=== PATIENT | male | born 1995 | race Caucasian/White ===

== ENCOUNTER 2025-08-22 17:26 | Emergency (ER) | payer OTHER, SELFPAY ==
[2025-08-22 17:35] VITALS: BP 135/73; RESP 18; TEMP 36.6; O2SAT 98; BMI 28.0
--- NOTE | 2025-08-22 17:35 | ED_ITS ---
HPI - General Adult General Chief complaint: Nausea/Vomiting/Diarrhea Stated complaint: n/v/d Time Seen by Provider: 08/22/25 18:01 Source: patient, RN notes reviewed and old records reviewed Mode of arrival: ambulatory History of Present Illness ED Provider: Jesica Koch PA-C [facility] narrative: 30-year-old male with no significant past medical history presenting to the ED complaining of abdominal discomfort/cramping, nausea, vomiting, and nonbloody diarrhea since 04:00. Admits to about 20 episodes of diarrhea. Patient admits to eating clams and oysters last night. Also reports associated low back pain. States others did eat same food and do not have similar symptoms. Denies fever, chills, travel, dysuria/hematuria, incontinence/retention Related Data Previous Rx's ?Medication ?Instructions ?Recorded dicyclomine 20 mg tablet 20 mg PO QID PRN abdominal p ain 08/22/25 #12 tabs ondansetron 4 mg disintegrating 4 mg PO Q8H PRN nausea and 08/22/25 tablet vomiting #10 tabs Allergies Allergy/AdvReac Type Severity Reaction Status Date / Time No Known Allergies Allergy Verified 08/22/25 17:37 Review of Systems 2 Review of Systems: Yes all other systems are reviewed and are negative Constitutional: Constitutional: Reports as per [facility] Past Medical History Attestation statement: The following information was validated with the patient. Source: old records reviewed Social History Social History Advance Directives: No Advance Directives on File: No Do you have a plan to hurt others: No Plan Physical Exam ED Vital Signs: Vital Signs - 24 hr 08/22/25 17:35 08/22/25 19:13 08/22/25 20:00 Temperature 98 F 98.1 F 98.8 F Pulse Rate 75 72 Respiratory Rate 18 16 16 Blood Pressure 135/73 121/74 146/79 H Pulse Oximetry 98 98 99 Oxygen Delivery Method Room Air Room Air Room Air 08/22/25 21:08 Temperature 98.8 F Pulse Rate 72 Respiratory Rate 16 Blood Pressure 146/79 H Pulse Oximetry 99 Oxygen Delivery Method Room Air BMI result Body Mass Index 28.0 Const General: cooperative, healthy appearing and no acute distress Orientation/consciousness: patient oriented x3 Limitations: no limitations HENMT Head: Yes normal to inspection and Yes atraumatic Ears: hearing grossly normal bilaterally General nose exam: Normal external nose present Face and sinus: Yes normal facial exam Eyes General: appearance normal, both eyes and all related structures EOM: EOMs intact bilaterally Neck Neck: Yes normal visual inspection and Yes no meningeal signs Resp Effort & Inspection: normal respiratory effort and no respiratory distress Cardio Rate: regular rate GI Inspection: Yes normal to inspection Palpation (GI): Soft to palpation, nontender, no guarding and not rigid General: Yes no CVA tenderness Back/Spine/Pelvis Other: No midline cervical/thoracic/lumbar spinous tenderness/step-off or deformity. + mild lumbar bilateral paraspinal reproducible tenderness Back: no CVA tenderness Skin Rashes: no rashes Wounds: no wounds Neuro Other: Strength intact throughout. No saddle anesthesia. Sensation intact to light touch. Neurovascular intact distally General: patient oriented x3, gait normal, tone normal, moves all extremities and no meningeal signs Cranial nerves: Yes CN's II-XII intact bilaterally Gait exam (Neuro): Normal gait present Motor exam (neuro): 5/5 motor strength present throughout Extrem General: Yes normal to inspection Course Course Course Narrative: This is a Rapid Medical Examination (RME) performed by Ayan Bailey PA-C in triage. Full HPI, ROS, assessment and treatment plan per primary provider in the Main ED. Hx: 30 yo M here for eval of N/V/D and mid abdominal pain x 0400 this morning. admits to eating oysters and clams yesterday. having muscle cramps to extremities. Plan: labs -1948--mild leukocytosis of 12.3 predominantly neutrophils. BUN mildly elevated at 22. Total bilirubin 1.4. Labs otherwise reassuring -C diff negative > stool studies pending. Discussed with patient if there is a positive result he will be contacted. Empiric antibiotic treatment not recommended at this time with him being well-appearing/afebrile -Abdominal re-palpation unremarkable. CT not indicated at this time >> patient is tolerating p.o. in the ED without difficulty. No vomiting since ED arrival Results discussed with patient including worrisome signs and symptoms and strict return precautions, and when to return to the emergency department. They verbalized understanding and feel safe for discharge at this time. Medications Administered Discontinued Medications Generic Name Dose Route Start Last Admin Trade Name Shahrzad PRN Reason Stop Dose Admin Cyclobenzaprine HCl 5 mg 08/22/25 19:15 08/22/25 19:43 Cyclobenzaprine Hcl 5 Mg Tablet PO 08/22/25 19:16 5 mg ONCE ONE Administration Dicyclomine HCl 20 mg 08/22/25 18:20 08/22/25 18:28 Dicyclomine Hcl 10 Mg Capsule PO 08/22/25 18:21 20 mg ONCE ONE Administration Sodium Chloride 1,000 mls @ 999 mls/hr 08/22/25 18:15 08/22/25 19:42 Ns IV 08/22/25 19:15 Infused .Q1H1M PETRA Infusion Sodium Chloride 1,000 mls @ 999 mls/hr 08/22/25 19:00 08/22/25 20:59 Ns IV 08/22/25 20:00 Infused .Q1H1M PETRA Infusion Ketorolac Tromethamine 15 mg 08/22/25 18:20 08/22/25 18:28 Ketorolac Tromethamine 15 Mg/Ml Vial IVPUSH 08/22/25 18:21 15 mg ONCE ONE Administration Metoclopramide HCl 10 mg 08/22/25 18:20 08/22/25 18:29 Metoclopramide Hcl 10 Mg/2 Ml Vial IVPUSH 08/22/25 18:21 10 mg ONCE ONE Administration Medical Decision Making Medical Decision Making MDM Narrative: 30-year-old male with no significant past medical history presenting to the ED complaining of abdominal discomfort/cramping, nausea, vomiting, and nonbloody diarrhea since 04:00. On exam vital signs stable, NAD, nontoxic appearing, abdomen is soft and nontender, no CVAT. Reproducible MSK back pain noted. No red flag symptoms. Concern for food poisoning/vibrio vs gastroenteritis. Low suspicion for acute necrotizing fasciitis/ischemic bowel. Rule out metabolic abnormalities. Lower suspicion for acute appendicitis/diverticulitis, colitis, testicular torsion, cauda equina/cord compression or epidural abscess Plan: Labs, UA, stool studies/C diff, IVF, symptomatic remedies, re-evaluate Please refer to course for remaining clinical decision making, interpretation of labs/imaging results, and discussions with consultants and/or family members. Differential Diagnosis Differential Diagnoses: The differential diagnosis associated with the presentation includes As above Admission/Observation Consideration of admission/observation: Escalation of care including admission/observation considered Lab Data MDM Lab Attestation statement: I reviewed the patient's lab results. 08/22/25 18:04 08/22/25 18:04 Labs: Lab Results 08/22/25 08/22/25 Range/Units 18:04 18:45 WBC 12.3 H (4.8-10.8) X10*3/uL RBC 5.70 (4.60-5.80) X10*6/uL Hgb 17.9 (14.0-18.0) g/dl Hct 51.1 (42.0-52.0) % MCV 89.6 (80.0-98.0) fL MCH 31.4 (27.0-33.0) pg MCHC 35.0 (31.0-36.0) g/dl RDW 11.5 (11.0-16.0) % Plt Count 271 (160-400) X10*3/uL MPV 10.1 (9.4-12.4) fL Immature Gran % (Auto) 0.4 (0.0-0.4) % Neut % (Auto) 90.3 H (45-73) % Lymph % (Auto) 2.5 L (20-40) % Runnels % (Auto) 6.4 (2-11) % Eos % (Auto) 0.2 (0-4) % Baso % (Auto) 0.2 (0-2) % Lymph # (Auto) 0.3 L (1.2-4.9) X10*3/uL Runnels # (Auto) 0.8 (0.1-1.2) X10*3/uL Eos # (Auto) 0.0 (0.0-0.4) X10*3/uL Baso # (Auto) 0.0 (0.0-0.2) X10*3/uL Abs Immat Gran (auto) 0.05 H (0.00-0.03) X10*3/uL Absolute Neuts (auto) 11.1 H (2.0-8.3) x10*3/uL Absolute Nucleated RBC 0.000 (0.0-0.012) X10*3/uL Nucleated RBC % (auto) 0.0 (0.0-0.2) /100WBC Smear Tech's Comments VERIFIED ESR 2 (0-15) MM/HR Sodium 137 (135-145) mmol/L Potassium 4.4 (3.3-5.1) mmol/L Chloride 105 (96-108) mmol/L Carbon Dioxide 20 L (22-29) mmol/L Anion Gap 16 (12-20) BUN 22 H (9-16) mg/dL Creatinine 1.27 (0.5-1.4) mg/dL Estim Creat Clear Calc 96.9 Estimated GFR > 60 Random Glucose 122 H (60-115) mg/dL Calcium 10.8 H (8.4-10.2) mg/dL Magnesium 1.9 (1.6-2.6) mg/dL Total Bilirubin 1.4 H (0.0-1.0) mg/dL AST 32 (5-37) U/L ALT 46 H (0-40) U/L Alkaline Phosphatase 68 (39-117) U/L C-Reactive Protein 0.41 (< or = 0.50) mg/dL Total Protein 8.9 H (6.5-8.0) g/dL Albumin 6.0 H (3.5-5.0) g/dL Lipase 13 (8-78) U/L Stl C. cayetanensis PCR Not Detected (Not Detect.) Stool Rotavirus A PCR Detected A (Not Detect.) Stl Adenov F 40/41 PCR Not Detected (Not Detect.) Stool Astrovirus (PCR) Not Detected (Not Detect.) Stool Campylobacter PCR Not Detected (Not Detect.) Stool Cryptosporidium PCR Not Detected (Not Detect.) Stl Sh Tox Pr E STEC PCR Not Detected (Not Detect.) Stool E coli O157 PCR Not applicable (Not Detect.) Stl Enterotoxigenic E PCR Not Detected (Not Detect.) Stool EPEC (PCR) Not Detected (Not Detect.) Stool EAEC (PCR) Not Detected (Not Detect.) Stl E. histolytica PCR Not Detected (Not Detect.) Stool Giardia Lamblia PCR Not Detected (Not Detect.) Stl P. shigelloides PCR Not Detected (Not Detect.) Stool Salmonella PCR Not Detected (Not Detect.) Stool Sapovirus (PCR) Not Detected (Not Detect.) Stl Shigella/EIEC PCR Not Detected (Not Detect.) St Y.enterocolitica PCR Not Detected (Not Detect.) Stool Vibrio (PCR) Not Detected (Not Detect.) Stl Vibrio cholerae PCR Not Detected (Not Detect.) Stl Norovirus GI/GII PCR Not Detected (Not Detect.) C. difficile Tox B Gene NEGATIVE (Negative) Influenza Type A (PCR) NEGATIVE (Negative) Influenza Type B (PCR) NEGATIVE (Negative) RSV RNA Qual (PCR) NEGATIVE (Negative) SARS-CoV-2 RNA (RT-PCR) NEGATIVE (Negative) Radiology Impression Discussion of test interpretation with radiology: I have reviewed the radiologist's reading. Independent Historian Clinical information obtained from an independent historian. History obtained from or confirmed by: Other External Record Review External record reviewed: Inpatient record, Office record, Outpatient record, Prior outpatient labs, Prior outpatient radiology, Primary care record and Outside ED record Tests considered The following testing was considered but not selected: As above Prescription Management I considered prescription management with: Pain Medication and Antibiotic Social Determinants Patient?s care significantly limited by Social Determinants of Health including: Other Social Determinant of Health Discharge Plan Discharge Clinical Impression: Food poisoning Patient Disposition: Home, Self-Care Instructions: Foodborne Illness (DC) Additional Instructions: Your blood work is reassuring You were negative for C diff Your stool studies are pending you will be contacted with positive results Make sure you are staying hydrated If her symptoms persist/worsen, you constant worsening abdominal pain, persistent diarrhea, black or bloody stools, persistent vomiting, you are unable to eat or drink return to the emergency department Please have close follow up with your primary care doctor Maryam will help with abdominal spasming. Zofran as an antinausea medication, take as needed Prescriptions: New dicyclomine 20 mg tablet 20 mg PO QID PRN (Reason: abdominal pain) Qty: 12 0RF ondansetron 4 mg tablet,disintegrating 4 mg PO Q8H PRN (Reason: nausea and vomiting) Qty: 10 0RF Referrals: Physician,None [Primary Care Provider, Medical] - 5 days Interventions: ED Discharge Assessment Last Done: 08/22/25 21:08 Discharge Date/Time: 08/22/25 21:09 Print Language: Persian
[2025-08-22 18:16] LABS: Hematocrit 51.1 % (42.0-52.0); Hemoglobin 17.9 g/dl (14.0-18.0); Imm Gran Abs Auto 0.05 X10*3/uL (0.00-0.03); Imm Gran Pct Auto 0.4 % (0.0-0.4); Lymphocytes Absolute Auto 0.3 X10*3/uL (1.2-4.9); MANUAL DIFF FLAG SCAN; Mean Corpuscular HGB Conc 35.0 g/dl (31.0-36.0); Mean Corpuscular Hemoglobin 31.4 pg (27.0-33.0); Mean Corpuscular Volume 89.6 fL (80.0-98.0); NRBC Abs Auto 0.000 X10*3/uL (0.0-0.012); NRBC Pct Auto 0.0 /100WBC (0.0-0.2); Platelet Count 271 X10*3/uL (160-400); Red Blood Count 5.70 X10*6/uL (4.60-5.80); SCAN SMEAR FLAG 1; White Blood Count 12.3 X10*3/uL (4.8-10.8)
[2025-08-22 18:31] LABS: Alanine Aminotransferase 46 U/L (0-40); Albumin Level 6.0 g/dL (3.5-5.0); Alkaline Phosphatase 68 U/L (39-117); Anion Gap 16 (12-20); Aspartate Amino Transferase 32 U/L (5-37); Blood Urea Nitrogen 22 mg/dL (9-16); Calcium 10.8 mg/dL (8.4-10.2); Carbon Dioxide 20 mmol/L (22-29); Chloride 105 mmol/L (96-108); Creatinine Clr Calc Pharmacy 96.9; Estimated Glomerular Filt Rate > 60; Lipase 13 U/L (8-78); Magnesium 1.9 mg/dL (1.6-2.6); Potassium 4.4 mmol/L (3.3-5.1); Sodium 137 mmol/L (135-145); Total Protein 8.9 g/dL (6.5-8.0)
[2025-08-22 18:51] LABS: Resp Syncy Virus RNA Qual PCR NEGATIVE (Negative); SARS COV2 PCR INHOUSE NEGATIVE (Negative)
[2025-08-22 19:13] VITALS: BP 121/74; PULSE 75; RESP 16; TEMP 36.7; O2SAT 98
--- OUTSIDE RECORDS SUMMARY | 2025-08-22 19:18 | XMS_ITS | Encounter Summary ---
Author Organization [facility] Address [address] [place] [id number] Phone Care Team Providers Care Rustic Fence Builder Name Role Phone Crystal Sierra NP Primary Care Provider [phone] Reason for Referral * - Pending Review Specialty Diagnoses / Procedures Referred By Mariola chen Referred To Contact Diagnoses Palpitations Procedures Patch Monitor up to 15 days Crystal Sierra NP [address] [place] [address] Phone: tel: fax: Referral ID Status Reason Start Date Expiration Date V isits Requested Visits Authorized [id number] Pending Review 07/27/2025 1 1 Encounter Details Date Type Department Care Team ([facility] st Contact Info) Description 07/27/2025 Ancillary Orders [facility] Cardiology [address] [facility] [address] [place] [address] Crystal Sierra NP [address] [id number] Palpitations (Primary Dx) Social History Tobacco Use Types Packs/Day Years Used Date Smoking Tobacco: Never Assessed Sex and Gender Information Value Date Recorded Sex Assigned at Not on file Legal Sex Male 10:03 AM EST Gender Identity Not on file Sexual Orientation Not on file documented as of this encounter Plan of Treatment Scheduled Orders Name Type Priority Associated Diagnoses Orde r Schedule Patch Monitor up to 15 days Cardiac Monitors Routine Palpitations Expected: 07/27/2025, Expires: 10/27/2025 documented as of this encounter Visit Diagnoses Diagnosis Palpitations- Primary documented in this encounter Care Teams Rustic Fence Builder Relationship Specialty Start Date End Date Crystal Sierra NP [address] [place] [address] PCP - General Nurse Practitioner 07/20/25 documented as of this encounter Additional Source Comments The information contained in this document represents components of the legal health record. It is not the complete legal health record.[facility]
--- OUTSIDE RECORDS SUMMARY | 2025-08-22 19:18 | XMS_ITS | Clinical Summary ---
[facility] Address [address] [place] [address] Phone Care Team Providers Care [employer] Name Role Phone Crystal Perez VIKA Primary Care Provider [phone] Allergies No known active allergies Medications Diclofenac Sodium (Voltaren) 1 % gel Apply topically four times a day 5 Active fluconazole (DIFLUCAN) 150 MG tablet Take 2 tablets (300 mg) by mouth once a week 26 tablet 1 5 Active ketoconazole (NIZORAL) 2 % cream Apply topically two times a day 30 g 2 5 Active ciclopirox (PENLAC) 8 % solution Apply topically nightly 6.6 mL 5 026 Active lisdexamfetamine (VYVANSE) 30 MG capsuleIndication s:Attention deficit hyperactivity disorder (ADHD), combined type Take 1 capsule (30 mg) by mouth every morning Dx code F90.9. Fill 08/18/25 30 capsule 5 Active lisdexamfetamine (VYVANSE) 30 MG capsuleIndication s:Attention deficit hyperactivity disorder (ADHD), combined type Take 1 capsule (30 mg) by mouth every morning Dx code F90.9 30 capsule 5 025 Discontin ued(Reord er) Active Problems Problem Noted Date Diagnosed Date Controlled substance agreement signed 03/12/2025 Overview (03/12/2025): Chronic Stimulant Treatment Agreement, 03/10/25 ADHD 01/02/2025 Overview (07/19/2025): Dx and initiation of treatment since 09/2024 by [facility] from [place] via video. 03/10/25 -Trial Vyvanse 20 mg daily. Previously was on Adderall 10 mg BID. 03/10/25 Drug agreement signed. 03/10/25 UDS - consistent. Palpitations 09/17/2023 Overview (04/13/2025): 04/13/25 - no palpitations past 1 mos. Monitor. Toenail fungus 09/17/2022 Encounters Date Type Department Care Team Description 08/10/[address] [facility] - Internal Medicine [address] [place] [phone] Crystal Perez CNP Med Refill 07/28/2025 9:00 AM EST Office Visit [facility] - Podiatry [address] [place] [place] [phone] Alex Rosas DPM Onychomycosis (Primary Dx); Tinea pedis, unspecified laterality 07/16/2025 9:[address] [facility] - Laboratory [address] [place] [phone] Food allergy; Annual physical exam 07/16/2025 8:00 AM EDT Office Visit [facility] - Internal Medicine [address] [place] [phone] Crystal Perez CNP Attention deficit hyperactivity disorder (ADHD), combined type (Primary Dx); Palpitations; Food allergy; Choking sensation; Annual physical exam 07/06/[address] [facility] - Internal Medicine [address] [place] [phone] Aidan Vargas PA Med Refill from Last 3 Months Family History Medical History Relation Comments Heart failure Father No Known Problems Mother Prostate cancer Paternal Grandfather Breast cancer Sister 50 Relation Status Comments Brother 2 Father Alive Maternal Grandfather Maternal Grandmother Alive Mother Alive Paternal Grandfather Paternal Grandmother Sister 2 Social History Tobacco Use Types Packs/Day Years Used Date Smoking Tobacco: Never Smokeless Tobacco: Never Tobacco Cessation:Counseling Given: Not Answered Alcohol Use Standard Drinks/Week Comments Yes 0 (1 standard drink = 0.6 oz pur e alcohol) rarely Sex and Gender Information Value Date Recorded Sex Assigned at Not on file Legal Sex Male 12:52 PM EST Gender Identity Not on file Sexual Orientation Not on file Last Filed Vital Signs Vital Sign Reading Time Taken Comments Blood Pressure 118/64 07/16/2025 8:09 AM EDT Pulse 75 07/16/2025 8:09 AM EDT Temperature - - Respiratory Rate - - Oxygen Saturation 99% 07/16/2025 8:09 AM EDT Inhaled Oxygen Concentration - - Weight 87.7 kg (193 lb 5.8 oz) 07/16/2025 8:09 A M EDT Height 175.3 cm (5' 9 ) 07/16/2025 8:09 AM EDT Body Mass Index 28.55 07/16/2025 8:09 AM EDT Plan of Treatment Upcoming Encounters Date Type Department Care Team (Late st Contact Info) Description 11/16/2025 8:00 AM EST Office Visit [facility] - Internal Medicine [facility] [place] [phone] Crystal Perez CNP [address] [place] [phone] 01/26/2026 8:00 AM EDT Office Visit [facility] - Podiatry [address] [place] [place] [phone] Alex Rosas DPM [address] [place] [address] [address] [place] [phone] Health Maintenance Due Date Last Done Comments [facility] Topic HIV Screening 1997 [facility] Topic Hepatitis C Screening 1997 [facility] Topic Tdap Vaccine (1 - Tdap) 2016 [facility] Topic HPV Vaccines (1 - 3-dose SCDM series) 2024 [facility] Topic Influenza (Flu) Seasonal (#1) 2025 [facility] Topic Stimulant Urine Drug Screen 03/10/2026 03/10/2025 [facility] Topic Lipid Profile 5 years 07/16/2030 07/16/2025 [facility] Topic Shingrix (1 of 2) 2047 [facility] Topic Stimulant Treat ment Agreement Completed 03/10/2025 [facility] AMB RSV (under 20 months) Aged Out No longer eligible based on patient's age to complete this topic [facility] Topic HIB Vaccines Aged Out No longer eligible based on patient's age to complete this topic Procedures Procedure Name Priority Date/Time Associated Diagnosis Comments ALLERGEN INTERPRETATION, REFLEX Routine 07/16/2025 9:15 AM EDT Food allergy ALLERGEN MACADAMIA NUT IGE Routine 07/16/2025 9:15 AM EDT Food allergy ALLERGEN BRAZIL NUT IGE Routine 07/16/2025 9:15 AM EDT Food allergy ALLERGEN TUNA IGE Routine 07/16/2025 9:1 5 AM EDT Food allergy ALLERGEN SALMON IGE Routine 07/16/2025 9 :15 AM EDT Food allergy ALLERGEN ALMOND IGE Routine 07/16/2025 9 :15 AM EDT Food allergy ALLERGEN CASHEW NUT IGE Routine 07/16/2025 9:15 AM EDT Food allergy ALLERGEN HAZELNUT IGE Routine 07/16/2025 9:15 AM EDT Food allergy ALLERGEN SESAME SEED IGE Routine 07/16/2025 9:15 AM EDT Food allergy ALLERGEN SCALLOP IGE Routine 07/16/2025 9:15 AM EDT Food allergy ALLERGEN SHRIMP IGE Routine 07/16/2025 9 :15 AM EDT Food allergy ALLERGEN SOYBEAN IGE (SEND OUT) Routine 07/16/2025 9:15 AM EDT Food allergy ALLERGEN COW'S MILK IGE (SEND OUT) Routine 07/16/2025 9:15 AM EDT Food allergy ALLERGEN CODFISH IGE Routine 07/16/2025 9:15 AM EDT Food allergy ALLERGEN WALNUT IGE Routine 07/16/2025 9 :15 AM EDT Food allergy ALLERGEN WHEAT IGE (SEND OUT) Routine 07/16/2025 9:15 AM EDT Food allergy ALLERGEN PEANUT IGE (SEND OUT) Routine 07/16/2025 9:15 AM EDT Food allergy ALLERGEN EGG WHITE IGE Routine 07/16/2025 9:15 AM EDT Food allergy HEMOGLOBIN A1C Routine 07/16/2025 9:15 AM EDT Annual physical exam LIPID PANEL Routine 07/16/2025 9:15 AM EDT Annual physical exam COMPREHENSIVE METABOLIC PANEL Routine 07/16/2025 9:15 AM EDT Annual physical exam CBC Routine 07/16/2025 9:15 AM EDT Annual physical exam TSH W/REFLEX TO FT4 Routine 07/16/2025 9 :15 AM EDT Annual physical exam ECG 12-LEAD Today 07/16/2025 8:52 AM EDT Palpitations URINE DRUGS OF ABUSE SCREEN Routine 03/10/2025 1:33 PM EDT Attention deficit hyperactivity disorder (ADHD), combined type from Last 3 Months or Most Recently Relevant to Health Maintenance Results * Allergen Interpretation, Reflex (SEND OUT) (07/16/2025 9:15 AM EDT) Interpretation SEE COMMENT 9:50 AM EST [facility] Comment: Specific Level of Allergen IGE Class kU/L Specific IGE Antibody ----- --------- 0 <0.10 Absent/Undetectable 0/1 0.10-0.34 Very Low Level 1 0.35-0.69 Low Level 2 0.70-3.49 Moderate Level 3 3.50-17.4 High Level 4 17.5-49.9 Very High Level 5 50-100 Very High Level 6 >100 Very High Level The clinical relevance of allergen results of 0.10-0.34 kU/L are undetermined and intended for specialist use. Allergens denoted with a include results using one or more analyte specific reagents. In those cases, the test was developed and its analytical performance characteristics have been determined by [employer]. It has not been cleared or approved by the U.S. Food and Drug Administration. This assay has been validated pursuant to the CLIA regulations and is used for clinical purposes. Blood Venous blood / Unknown Venipuncture / Unknown 07/16/2025 9:15 AM EDT 07/16/2025 9:34 AM EDT Narrative [facility] - 08/18/2025 9:50 AM EST Performing Organization Information: Site ID: [id number] Name: [employer] [facility] Address: [address] [place] [phone] Director: Tootei Marquez M.D. Crystal Perez [facility] LAB BLOOD ORDERABLES Edited Resu lt - Final [facility] [address] [place] [address] * TSH W/REFLEX TO FT4 (07/16/2025 9:15 AM EDT) TSH 2.120 0.270 - 4.200 uIU/mL 07/16/2025 12:18 PM EDT [facility] Blood Venous blood / Unknown Venipuncture / Unknown 07/16/2025 9:15 AM EDT 07/16/2025 9:34 AM EDT us Crystal Perez [employer] LAB BLOOD ORDERABLES Final Resul t [facility] [address] [place] [address], * Allergen Tuna IgE (SEND OUT) (07/16/2025 9:15 AM EDT) Tuna (F40) IgE <0.10 kU/L 08/18/2025 9:50 AM EST [facility] Tuna Class 0 08/18/2025 9:50 AM EST [facility] Blood Venous blood / Unknown Venipuncture / Unknown 07/16/2025 9:15 AM EDT 07/16/2025 9:34 AM EDT Narrative [facility] - 08/18/2025 9:50 AM EST Performing Organization Information: Site ID: [id number] Name: [employer] Address: [address] [place] [phone] Director: Tootie Marquez M.D. [employer] LAB BLOOD ORDERABLES Edited Resu lt - Final Performing Organization Address City/[facility]/ZIP Co de Phone Number [facility] [address] [place] [phone] * Allergen Horicon IgE (SEND OUT) (07/16/2025 9:15 AM EDT) Horicon (F20) IgE <0.10 kU/L 08/18/2025 9:50 AM EST [facility] Horicon Class 0 08/18/2025 9:50 AM EST [facility] Blood Venous blood / Unknown Venipuncture / Unknown 07/16/2025 9:15 AM EDT 07/16/2025 9:34 AM EDT Narrative [facility] - 08/18/2025 9:50 AM EST Performing Organization Information: Site ID: [id number] Name: [employer] Address: [address] [place] [phone] Director: Tootie Marquez M.D. [employer] LAB BLOOD ORDERABLES Edited Resu lt - Final Performing Organization Address City/[facility]/ZIP Co de Phone Number [address] [address] * Allergen Shrimp IgE (SEND OUT) (07/16/2025 9:15 AM EDT) Shrimp (F24) IgE <0.10 kU/L 08/18/2025 9:50 AM EST [facility] Shrimp Class 0 08/18/2025 9:50 AM EST [facility] Blood Venous blood / Unknown Venipuncture / Unknown 07/16/2025 9:15 AM EDT 07/16/2025 9:34 AM EDT Narrative [facility] - 08/18/2025 9:50 AM EST Performing Organization Information: Site ID: [id number] Name: [employer] Address: [address] [place] [phone] Director: Tootie Marquez M.D. Crystal Perez [employer] LAB BLOOD ORDERABLES Edited [facility] Final Performing Organization Address [facility] Phone Number [address] [address] * Allergen Hazelnut IgE (SEND OUT) (07/16/2025 9:15 AM EDT) Hazelnut (F17) IgE <0.10 kU/L 08/18/2025 9:50 AM EST [facility] Hazelnut Class 0 08/18/2025 9:50 AM EST [facility] Blood Venous blood / Unknown Venipuncture / Unknown 07/16/2025 9:15 AM EDT 07/16/2025 9:34 AM EDT Narrative [facility] - 08/18/2025 9:50 AM EST Performing Organization Information: Site ID: [id number] Name: [employer] Address: [address] [place] [phone] Director: Tootie Marquez M.D. us Crystal Perez [employer] LAB BLOOD ORDERABLES Edited Resu lt - Final Performing Organization Address [facility] de Phone Number [address] [address] * Allergen Cashew Nut IgE (SEND OUT) (07/16/2025 9:15 AM EDT) Cashew Nut (F202) IgE <0.10 kU/L 08/18/2025 9:50 AM EST [facility] Cashew Nut Class 0 08/18/2025 9:50 AM EST [facility] Blood Venous blood / Unknown Venipuncture / Unknown 07/16/2025 9:15 AM EDT 07/16/2025 9:34 AM EDT Narrative [facility] - 08/18/2025 9:50 AM EST Performing Organization Information: Site ID: [id number] Name: [employer] Address: [address] [place] [phone] Director: Tootie Marquez M.D. us Crystal Perez [employer] LAB BLOOD ORDERABLES Edited Resu lt - Final Performing Organization Address [facility] Co de Phone Number [address] [address] * Allergen [place] IgE (SEND OUT) (07/16/2025 9:15 AM EDT) [place] (F256) IgE <0.10 kU/L 08/18/2025 9:50 AM EST [facility] [place] Class 0 08/18/2025 9:50 AM EST [facility] Blood Venous blood / Unknown Venipuncture / Unknown 07/16/2025 9:15 AM EDT 07/16/2025 9:34 AM EDT Narrative [facility] - 08/18/2025 9:50 AM EST Performing Organization Information: Site ID: [id number] Name: [employer] Address: [address] [place] [phone] Director: Tootie Marquez M.D. Crystal Perez [employer] LAB BLOOD ORDERABLES Edited Resu - Final Performing Organization Address [facility] Co de Phone Number [address] [address] * Allergen Codfish IgE (SEND OUT) (07/16/2025 9:15 AM EDT) Codfish (F3) IgE <0.10 kU/L 08/18/2025 9:50 AM EST [facility] Codfish Class 0 08/18/2025 9:50 AM EST [facility] Blood Venous blood / Unknown Venipuncture / Unknown 07/16/2025 9:15 AM EDT 07/16/2025 9:34 AM EDT Narrative [facility] - 08/18/2025 9:50 AM EST Performing Organization Information: Site ID: [id number] Name: [employer] Address: [address] [place] [phone] Director: Tootie Marquez M.D. [facility] [employer] LAB BLOOD ORDERABLES Edited Resu lt - Final Performing Organization Address [facility] de Phone Number [address] [address] * Allergen Peanut IgE (SEND OUT) (07/16/2025 9:15 AM EDT) Peanut (F13) IgE <0.10 kU/L 08/18/2025 9:50 AM EST [facility] Peanut Class 0 08/18/2025 9:50 AM EST [facility] Blood Venous blood / Unknown Venipuncture / Unknown 07/16/2025 9:15 AM EDT 07/16/2025 9:34 AM EDT Narrative [facility] - 08/18/2025 9:50 AM EST Performing Organization Information: Site ID: [id number] Name: [employer] [facility] Address: [address] [place] [phone] Director: Tootie Marquez M.D. Crystal [employer] LAB BLOOD ORDERABLES Edited Resu lt - Final Performing Organization Address [facility] de Phone Number [address] [address] * Allergen Wheat IgE (SEND OUT) (07/16/2025 9:15 AM EDT) Wheat (F4) IgE <0.10 kU/L 08/18/2025 9:50 AM EST [facility] Wheat Class 0 08/18/2025 9:50 AM EST [facility] Blood Venous blood / Unknown Venipuncture / Unknown 07/16/2025 9:15 AM EDT 07/16/2025 9:34 AM EDT Narrative [facility] - 08/18/2025 9:50 AM EST Performing Organization Information: Site ID: [id number] Name: [employer] Address: [address] [place] [phone] Director: Tootie Marquez M.D. [employer] LAB BLOOD ORDERABLES Edited Resu lt - Final Performing Organization Address [facility] de Phone Number [address] [address] * Allergen Egg White IgE (SEND OUT) (07/16/2025 9:15 AM EDT) Egg White (F1) IgE <0.10 kU/L 08/18/2025 9:50 AM EST [facility] Egg White Class 0 9:50 AM EST [facility] Blood Venous blood / Unknown Venipuncture / Unknown 07/16/2025 9:15 AM EDT 07/16/2025 9:34 AM EDT Narrative [facility] - 08/18/2025 9:50 AM EST Performing Organization Information: Site ID: [id number] Name: [employer] Address: [address] [place] [phone] Director: Tootie Marquez M.D. [employer] LAB BLOOD ORDERABLES Edited Resu - Final Performing Organization Address [facility] de Phone Number [address] [address] * Allergen Soybean IgE (SEND OUT) (07/16/2025 9:15 AM EDT) Soybean (F14) IgE <0.10 kU/L 08/18/2025 9:50 AM EST [facility] Soybean Class 0 08/18/2025 9:50 AM EST [facility] Blood Venous blood / Unknown Venipuncture / Unknown 07/16/2025 9:15 AM EDT 07/16/2025 9:34 AM EDT Narrative [facility] - 08/18/2025 9:50 AM EST Performing Organization Information: Site ID: [id number] Name: [employer] Address: [address] [place] [phone] Director: Tootie Marquez M.D. Crystal Perez [employer] LAB BLOOD ORDERABLES Edited [facility] Performing Organization Address [facility] de Phone Number [address] [phone] * Allergen Scallop IgE (SEND OUT) (07/16/2025 9:15 AM EDT) Scallop (F338) IgE <0.10 kU/L 08/18/2025 9:50 AM EST [facility] Scallop Class 0 08/18/2025 9:50 AM EST [facility] Blood Venous blood / Unknown Venipuncture / Unknown 07/16/2025 9:15 AM EDT 07/16/2025 9:34 AM EDT Narrative [facility] - 08/18/2025 9:50 AM EST Performing Organization Information: Site ID: [id number] Name: [employer] Address: [address] [place] [phone] Director: Tootie Marquez M.D. Crystal Perez [facility] LAB BLOOD ORDERABLES Edited [facility] Performing Organization Address [facility] de Phone Number [address] [address] * Allergen Matthews Nut IgE (SEND OUT) (07/16/2025 9:15 AM EDT) Matthews Nut (F18) IgE <0.10 kU/L 08/18/2025 9:50 AM EST [facility] Matthews Nut Class 0 08/18/2025 9:50 AM EST [facility] Blood Venous blood / Unknown Venipuncture / Unknown 07/16/2025 9:15 AM EDT 07/16/2025 9:34 AM EDT Narrative [facility] - 08/18/2025 9:50 AM EST Performing Organization Information: Site ID: [id number] Name: [employer] Address: [address] [place] [phone] Director: Tootie Marquez M.D. Crystal Perez [employer] LAB BLOOD ORDERABLES Edited Resu lt - Final Performing Organization Address [facility] [place] [address] * Allergen Sesame Seed IgE (SEND OUT) (07/16/2025 9:15 AM EDT) Sesame Seed (F10) IgE <0.10 kU/L 08/18/2025 9:50 AM EST [facility] Sesame Seed Class 0 08/18/2025 9:50 AM EST [facility] Blood Venous blood / Unknown Venipuncture / Unknown 07/16/2025 9:15 AM EDT 07/16/2025 9:34 AM EDT Narrative [facility] - 08/18/2025 9:50 AM EST Performing Organization Information: Site ID: [id number] Name: [employer] Address: [address] [place] [phone] Director: Tootie Marquez M.D. Crystal Perez CNP LAB BLOOD ORDERABLES Edited [facility] - Final Performing Organization Address [facility] de Phone Number [address] [address] * Allergen [place] IgE (SEND OUT) (07/16/2025 9:15 AM EDT) [place] (F41) IgE <0.10 kU/L 08/18/2025 9:50 AM EST [facility] [place] Class 0 08/18/2025 9:50 AM EST [facility] Blood Venous blood / Unknown Venipuncture / Unknown 07/16/2025 9:15 AM EDT 07/16/2025 9:34 AM EDT Narrative [facility] - 08/18/2025 9:50 AM EST Performing Organization Information: Site ID: [id number] Name: [employer] Address: [address] [place] [phone] Director: Tootie Marquez M.D. Crystal Perez [employer] LAB BLOOD ORDERABLES Edited Resu lt - Final Performing Organization Address [facility] [place] [address] * Allergen Macadamia Nut IgE (SEND OUT) (07/16/2025 9:15 AM EDT) Macadamia Nut (RF345) IgE <0.10 kU/L 08/18/2025 9:50 AM EST [facility] Macadamia Nut Class 0 08/18/2025 9:50 AM EST [facility] Blood Venous blood / Unknown Venipuncture / Unknown 07/16/2025 9:15 AM EDT 07/16/2025 9:34 AM EDT Narrative [facility] - 08/18/2025 9:50 AM EST Performing Organization Information: Site ID: [id number] Name: [employer] Address: [address] [place] [phone] Director: Tootie Marquez M.D. Crystal Perez CNP LAB BLOOD ORDERABLES Edited Resu - Final Performing Organization Address [facility] de Phone Number [address] [address] * Allergen Cow'S Milk IgE (SEND OUT) (07/16/2025 9:15 AM EDT) Cow's Milk (F2) IgE <0.10 kU/L 08/18/2025 9:50 AM EST [facility] Cow's Milk Class 0 08/18/2025 9:50 AM EST [facility] Blood Venous blood / Unknown Venipuncture / Unknown 07/16/2025 9:15 AM EDT 07/16/2025 9:34 AM EDT Narrative [facility] - 08/18/2025 9:50 AM EST Performing Organization Information: Site ID: [id number] Name: [employer] Address: [address] [place] [phone] Director: Tootie Marquez M.D. us Crystal Perez [employer] LAB BLOOD ORDERABLES Edited Resu lt [place] [address] * CBC (07/16/2025 9:15 AM EDT) WBC 9.6 4.5 - 10.8 10*3 l 07/16/2025 11:47 AM EDT [facility] RBC 4.80 4.70 - 6.10 10*6 l 07/16/2025 11:47 AM EDT [facility] Hemoglobin 15.2 14.0 - 18.0 g/dL 07/16/2025 11:47 AM EDT [facility] Hematocrit 43.8 42.0 - 52.0 % 07/16/2025 11:47 AM EDT [facility] MCV 91 80 - 95 fL 07/16/2025 11:47 AM EDT [facility] MCH 31.7 25.4 - 39.0 pg 07/16/2025 11:47 AM EDT [facility] MCHC 34.7 31.0 - 37.0 g/dL 07/16/2025 11:47 AM EDT [facility] RDW 11.9 11.5 - 14.5 % 07/16/2025 11:47 AM EDT [facility] Platelets 267 150 - 450 10*3 l 07/16/2025 11:47 AM EDT [facility] MPV 10.2 7.0 - 11.0 fL 07/16/2025 11:47 AM EDT [facility] Blood Venous blood / Unknown Venipuncture / Unknown 07/16/2025 9:15 AM EDT 07/16/2025 9:34 AM EDT us Crystal Perez [employer] LAB BLOOD ORDERABLES Final Resul t [facility] [address] [place] [address], [place] [phone] * HEMOGLOBIN A1C (07/16/2025 9:15 AM EDT) Hemoglobin A1C 5.1 >0.0 - <5.7 % 07/16/2025 12:00 PM EDT [facility] Comment:According to ADA elena delines, HbA1c levels 5.7-6.4% represent pre- diabetes, indicating impaired glucose control and an increased risk of developing diabetes. The diagnostic HbA1c level for diabetes is 6.5% or greater. HbA1c is performed by the Yash Shannan-quant assay method which does not detect (incidental) hemoglobin variants. Hemoglobin electrophoresis should be ordered in patients with suspected hemoglobinopathies. Mean Plasma Glucose (calculated) 92.1 07/16/2025 12:00 PM EDT [facility] Blood Venous blood / Unknown Venipuncture / Unknown 07/16/2025 9:15 AM EDT 07/16/2025 9:34 AM EDT us Crystal Perez [employer] LAB BLOOD ORDERABLES Final Resul t Performing Organization Address City/State/[facility] Co de Phone Number [facility] [address] [place] [address], [place] [phone] * (ABNORMAL) LIPID PANEL (07/16/2025 9:15 AM EDT) Pathologist [facility] Cholesterol 204(H) 120 - 200 mg/dL 07/16/2025 12:14 PM EDT [facility] HDL 66 35 - 100 mg/dL 07/16/2025 12:14 PM EDT [facility] LDL Calculated 119 60 - 130 mg/dL 07/16/2025 12:14 PM EDT [facility] Triglycerides 94 35 - 150 mg/dL 07/16/2025 12:14 PM EDT [facility] Cholesterol Risk Ratio 3.09 mg/dL 07/16/2025 12:14 PM EDT [facility] Comment:Less than the averag e risk of developing coronary heart disease. Blood Venous blood / Unknown Venipuncture / Unknown 07/16/2025 9:15 AM EDT 07/16/2025 9:34 AM EDT us Crystal Perez [employer] LAB BLOOD ORDERABLES Final Resul t [facility] [address] [place] [address], [place] [phone] * COMPREHENSIVE METABOLIC PANEL (07/16/2025 9:15 AM EDT) Glucose 96 70 - 100 mg/dL 07/16/2025 12:14 PM EDT [facility] BUN 17 6 - 19 mg/dL 07/16/2025 12:14 PM EDT [facility] Creatinine 1.0 0.4 - 1.2 mg/dL 07/16/2025 12:14 PM T [facility] eGFR >60.00 >60.00 mL/min/1.7 3m*2 07/16/2025 12:14 PM EDT [facility] Sodium 139 135 - 145 mmol/L 07/16/2025 12:14 PM [facility] Potassium 4.8 3.4 - 5.1 mmol/L 07/16/2025 12:14 PM T [facility] Chloride 102 98 - 109 mmol/L 07/16/2025 12:14 PM EDT [facility] CO2 28 22 - 29 mmol/L 07/16/2025 12:14 [facility] Anion Gap 9 6 - 16 mmol/L 07/16/2025 12:14 PM T [facility] Calcium 9.4 8.5 - 10.5 mg/dL 07/16/2025 12:14 PM [facility] Total Bilirubin 0.5 0.2 - 1.2 mg/dL 07/16/2025 12:14 PM EDT [facility] Alkaline Phosphatase 62 40 - 129 U/L 07/16/2025 12:14 PM [facility] ALT (SGPT) 38 0 - 40 U/L 07/16/2025 12:14 PM T [facility] AST 23 0 - 37 U/L 07/16/2025 12:14 PM [facility] Total Protein 7.5 6.0 - 8.5 g/dL 07/16/2025 12:14 PM T [facility] Albumin 4.9 3.3 - 5.2 g/dL 07/16/2025 12:14 PM EDT [facility] Estimated Creatinine Clearance 120.6 mL/min 07/16/2025 12:14 PM EDT [facility] Blood Venous blood / Unknown Venipuncture / Unknown 07/16/2025 9:15 AM EDT 07/16/2025 9:34 AM EDT Crystal Perez [facility] BLOOD ORDERABLES Final Resul t Performing Organization Address [facility] Co de Phone Number [facility] [address] [place] [address], [place] [phone] * EKG (07/16/2025 8:52 AM EDT) 07/16/2025 8:52 AM EDT 07/16/2025 11:09 PM EDT Impressions MUSE - 07/16/2025 11:09 PM EDT Test Reason : Reason for Exam:->palpitation Blood Pressure : */* mmHG Vent. Rate : 58 BPM Atrial Rate : 58 BPM P-R Int : 156 ms QRS Dur : 92 ms QT Int : 452 ms P-R-T Axes : -6 15 52 degrees QTc Int : 443 ms Sinus bradycardia with sinus arrhythmia Otherwise normal ECG No previous ECGs available Referred By: CRYSTAL PEREZ Confirmed By: Jono Mccann MD Narrative Procedure Note Jono Mccann MD - 07/16/2025 IMPRESSION Test Reason : Reason for Exam:->palpitation Blood Pressure : */* mmHG Vent. Rate : 58 BPM Atrial Rate : 58 BPM P-R Int : 156 ms QRS Dur : 92 ms QT Int : 452 ms P-R-T Axes : -6 15 52 degrees QTc Int : 443 ms Sinus bradycardia with sinus arrhythmia Otherwise normal ECG No previous ECGs available Referred By: CRYSTAL PEREZ Confirmed By: Jono Mccann MD us Crystal Perez [employer] ECG ORDERABLES Final Result Performing Organization Address [facility]/ZIP Co de Phone Number MUSE * (ABNORMAL) Urine drugs of abuse screen (UDS) (03/10/2025 1:33 PM EDT) Amphetamines, Urine Screen Positive(A) None Detected 03/10/2025 4:56 PM EDT [facility] Comment:This test is a presu mptive screening test. If clinically indicated confirm with alternate methodology. Barbiturates, Urine Screen None Detected None Detected 03/10/2025 4:56 PM EDT [facility] Comment:This test is a presu mptive screening test. If clinically indicated confirm with alternate methodology. Benzodiazepines, Urine Screen None Detected None Detected 03/10/2025 4:56 PM EDT [facility] Comment:This test is a presu mptive screening test. If clinically indicated confirm with alternate methodology. Buprenorphine (Suboxone), Urine Screen None Detected None Detected 03/10/2025 4:56 PM EDT [facility] Comment:This test is a presu mptive screening test. If clinically indicated confirm with alternate methodology. Cocaine, Urine Screen None Detected None Detected 03/10/2025 4:56 PM EDT [facility] Comment:This test is a presu mptive screening test. If clinically indicated confirm with alternate methodology. MDMA, Urine Screen None Detected None Detected 03/10/2025 4:56 PM EDT [facility] Comment:This test is a preum ptive screening test. If clinically indicated confirm with alternate methodology. Methadone, Urine Screen None Detected None Detected 03/10/2025 4:56 PM EDT [facility] Comment:This test is a presu mptive screening test. If clinically indicated confirm with alternate methodology. Methamphetamine, Urine Screen None Detected None Detected 03/10/2025 4:56 PM EDT [facility] Comment:This test is a presu mptive screening test. If clinically indicated confirm with alternate methodlogy. Opiates, Urine Screen None Detected None Detected 03/10/2025 4:56 PM EDT [facility] Comment:This test is a presu mptive screening test. If clinically indicated confirm with alternate methodology. Oxycodone, Urine Screen None Detected None Detected 03/10/2025 4:56 PM EDT [facility] Comment:This test is a presu mptive screening test. If clinically indicated confirm with alternate methodology. Phencyclidene (PCP), Urine Screen None Detected None Detected 03/10/2025 4:56 PM EDT [facility] Comment:This test is a presu mptive screening test. If clinically indicated confirm with alternate methodology. Propoxyphene, Urine Screen None Detected None Detected 03/10/2025 4:56 PM EDT [facility] Comment:This test is a presu mptive screening test. If clinically indicated confirm with alternative methodology. Cannabinoids (THC), Urine Screen None Detected None Detected 03/10/2025 4:56 PM EDT [facility] Comment:This test is a presu mptive screening test. If clinically indicated confirm with alternate methodology. Tricyclic Antidepressants, Urine Screen None Detected None Detected 03/10/2025 4:56 PM EDT [facility] Comment:This test is a presu mptive screening test. If clinically indicated confirm with alternate methodology. Specimen Temperature, Urine Screen 90(L) 91 - 97 Degrees Farenheit 03/10/2025 4:56 PM EDT [facility] Comment: Urine Drug Screen does not test for: Fentanyl Ritalin (Methylphenidate) Demerol (Meperidine) Tramadol Urine Urine specimen obtained by clean catch procedure / Unknown Non-blood Collection / Unknown 03/10/2025 1:33 PM EDT 03/10/2025 1:33 PM EDT us Crystal Perez [employer] LAB URINE ORDERABLES Final Resul t [facility] [address] [place] [address], [place] [phone] from Last 3 Months or Most Recently Relevant to Health Maintenance Insurance [employer] Care Teams Knuckle Strap Sewer Relationship Specialty Start Date End Date Crystal Perez CNP [address] [place] [id number] PCP - General Internal Medicine 08/21/24
--- OUTSIDE RECORDS SUMMARY | 2025-08-22 19:18 | XMS_ITS | Encounter Summary ---
Author Organization [facility] Address [address] [place] [facility] [address] Phone Care Team Providers Care President Name Role Phone Crystal Sierra CNP Primary Care Provider [phone] Encounter Details Date Type Department Care Team (Late Contact Info) Description 01/23/2025 Scanned Document [facility] - Health Information Department [address] [place] [phone] Scan, No Provider Available [address] [place] [address] [place] [address] <No scans attached> Social History Tobacco Use Types Packs/Day Years Used Date Smoking Tobacco: Never Smokeless Tobacco: Never Alcohol Use Standard Drinks/Week Comments Yes 0 (1 standard drink = 0.6 oz pur e alcohol) rarely Sex and Gender Information Value Date Recorded Sex Assigned at Not on file Legal Sex Male 12:52 PM EST Gender Identity Not on file Sexual Orientation Not on file documented as of this encounter Plan of Treatment Upcoming Encounters Date Type Department Care Team (Late Contact Info) Description 11/16/2025 8:00 AM EST Office Visit [facility] - Internal Medicine [address] [facility] [place] [phone] Crystal Sierra CNP [address] [place] [phone] 01/26/2026 8:00 AM EDT Office Visit [facility] - Podiatry [address] [place] [phone] Alex Rosas, ENEIDA [address] [address] documented as of this encounter Visit Diagnoses Not on filedocumented in this encounter Additional Health Concerns Assessment Noted Time PHQ-9 Depression Total Score: 3 01/03/20 25 1:13 PM EDT documented as of this encounter Care Teams President Relationship Specialty Start Date End Date Crystal Sierra CNP [address] [place] [phone] PCP - General Internal Medicine 08/21/24 documented as of this encounter
--- OUTSIDE RECORDS SUMMARY | 2025-08-22 19:18 | XMS_ITS | Clinical Summary ---
Author Organization [facility] Address [address] [place] [address] Phone Care Team Providers Care Creative/Art Director Name Role Phone Unavailable Primary Care Provider Unavailabl e Medications No known medications Active Problems No known active problems Social History Tobacco Use Types Packs/Day Years Used Date Smoking Tobacco: Never Assessed Sex and Gender Information Value Date Recorded Sex Assigned at Male 11/04/2024 9:10 AM EST Legal Sex Male 2:41 PM EST Gender Identity Male 11/04/2024 9:10 AM EST Sexual Orientation Patient chooses not to answer 11/04/2024 9:10 AM EST Plan of Treatment Health Maintenance Due Date Last Done Comments HIV Lifetime Screening 1997 Hepatitis B Lifetime Screening 1997 Hepatitis C Antibody Lifetim e Screening 1997 THRIVE SCREENING 1997 Oral Health Screen 1997 HEIP Disability Screen 2002 BEHAVIORAL HEALTH SCREEN 2009 Psych Substance Use Screen 2009 DTAP/TDAP VACCINE (1 - Tdap) 2016 HPV VACCINES (1 - 3-dose SCD M series) 2024 COVID-19 Vaccine ( - 2024-2 6 season) 2025 INFLUENZA VACCINE (#1) 2025 Zoster Vaccine (1 of 2) 2047 IPV VACCINES Aged Out No longer eligi ble based on patient's age to complete this topic MENINGOCOCCAL B Aged Out No longer el igible based on patient's age to complete this topic Pneumonia Vaccine 0-49 Years Aged Out No longer eligible based on patient's age to complete this topic ROTAVIRUS VACCINES Aged Out No longer eligible based on patient's age to complete this topic
--- OUTSIDE RECORDS SUMMARY | 2025-08-22 19:18 | XMS_ITS | Clinical Summary ---
Author Organization [facility] Address [address] [facility] [address] [place] [address] Phone Care Team Providers Care Imaging Services Director Name Role Phone Crystal Sierra NP Primary Care Provider [phone] Encounters Date Type Department Care Team Description 07/27/2025 Ancillary Orders [facility] [address] [facility] [address] [place] [address] Crystal Sierra NP Palpitations (Primary Dx) from Last 3 Months Social History Tobacco Use Types Packs/Day Years Used Date Smoking Tobacco: Never Assessed Sex and Gender Information Value Date Recorded Sex Assigned at Not on file Legal Sex Male 10:03 AM EST Gender Identity Not on file Sexual Orientation Not on file Plan of Treatment Not on file Medical Devices Not on file Insurance [facility] [place] [id number] [facility] Member Subscriber Plan / Payer (Ef fective 2023-Present) Name:Graciela Pulidolan Relation to Subscriber:Self Name:Tom Pulido Payer ID:[id number] (NAIC) Type:PPO Address: [place] [id number] Care Teams Imaging Services Director Relationship Specialty Start Date End Date Crystal Sierra NP [address] [place] [address] PCP - General Nurse Practitioner 07/20/25 Additional Source Comments The information contained in this document represents components of the legal health record. It is not the complete legal health record.[facility]
[2025-08-22 19:36] LABS: CDiff Gene PCR NEGATIVE (Negative)
--- NOTE | 2025-08-22 19:59 | PC.NURSE ---
this RN assumed care of this pt @1900, pt A+Ox4, noted to be laying supine, talking w/ family at the bedside, pt was moved from ED13H to ED10 for privacy and comfort, pt medicated per NOV, extra pillow provided for comfort, call calzada within reach for safety, pt appears to be in no acute apparent distrfess at this time
[2025-08-22 20:00] VITALS: BP 146/79; PULSE 72; RESP 16; TEMP 37.1; O2SAT 99
[2025-08-22 20:41] LABS: Erythrocyte Sedimentation Rate 2 MM/HR (0-15)
[2025-08-22 21:08] VITALS: BP 146/79; PULSE 72; RESP 16; TEMP 37.1; O2SAT 99
[2025-08-23 08:57] LABS: E. coli EAEC Not Detected (Not Detect.); E. coli EPEC Not Detected (Not Detect.); E. coli ETEC Not Detected (Not Detect.); E. coli STEC Not Detected (Not Detect.); Shigella sp./EIEC Not Detected (Not Detect.)
== END 2025-08-22 21:09 | disposition home or self-care (01) ==
PROVIDERS: Physician Assistant; Physician Assistant Medical; Emergency Provider Emergency Medicine Emergency Medical Services
DX: A05.9 Bacterial foodborne intoxication, unspecified (principal); R11.2 Nausea with vomiting, unspecified; R19.7 Diarrhea, unspecified; R10.819 Abdominal tenderness, unspecified site; Z03.818 Encounter for observation for suspected exposure to other biological agents ruled out
CPT/HCPCS: 80053; 83690; 83735; 85025; 85652; 86140; 87493; 87507; 87637; 96361; 96374; 96375; 99284; J1885; J2765